=== PATIENT | female | born 1970 | race Two or more races ===

== ENCOUNTER 2022-05-31 13:04 | Emergency (ER) | payer BC, OTHER ==
[~2022-05-31] VITALS: Ht 170.2 cm; Wt 126.0 kg
[2022-05-31] MEDS ORDERED: HYDROcodone-ACET 5/325MG TAB PO ONE (15:45)
[2022-05-31 15:54] VITALS: BP 115/62
[2022-05-31 16:19] LABS: Albumin 3.8 g/dL (3.4-5.0); Calcium 8.6 mg/dL (8.5-10.1)
[2022-05-31 16:22] LABS: BUN/Creatinine Ratio 16.9; Bilirubin, Total 0.4 mg/dL (0.2-1.0); Total Protein 7.5 g/dL (6.4-8.2)
[2022-05-31 16:24] LABS: Basophils # (auto) 0 10 ^3/uL (0-0.2); Basophils % (auto) 0.7 % (0.0-2.0); Eosinophils # (auto) 0.1 10 ^3/uL (0-0.8); Eosinophils % (auto) 1.7 % (0.0-7.0); Hematocrit 39.8 % (36.0-46.0); Hemoglobin 12.9 g/dL (12.2-16.2); Lymphocytes % (auto) 28.2 % (10.0-50.0); Mean Corpuscular Hemoglobin 30.1 pg (28.0-32.0); Mean Corpuscular Hgb Conc. 32.5 g/dL (32.0-36.0); Mean Corpuscular Volume 92.7 fL (80.0-100.0); Monocytes # (auto) 0.6 10 ^3/uL (0-1.3); Monocytes % (auto) 8.4 % (0.0-12.0); Neutrophils # (auto) 4.2 10 ^3/uL (1.6-8.6); Nucleated Red Blood Cells % 0.2 %; Red Blood Cells 4.29 10^6/uL (4.0-5.20); Red Cell Distribution Width 13.5 % (11.8-14.3); White Blood Cell 6.9 10^3/uL (4.4-10.8)
[2022-05-31 17:12] LABS: Urine Bacteria MANY /hpf (None Seen); Urine Blood Negative /uL (Negative); Urine Specific Gravity 1.008 (1.001-1.035); Urine WBC 2 /hpf (0 - 5)
[2022-05-31] MEDS ORDERED: BENZ100C19 PO (17:39)
[2022-05-31] MEDS ORDERED: NITR-87 PO (17:39)
[2022-05-31] MEDS ORDERED: LORA-483 GT (17:39)
== END 2022-05-31 17:45 | disposition home or self-care (01) ==
LOC: ER 13:04
DX: J06.9 Acute upper respiratory infection, unspecified (principal); B97.89 Other viral agents as the cause of diseases classified elsewhere; N39.0 Urinary tract infection, site not specified; I10 Essential (primary) hypertension
CPT/HCPCS: 36415; 71046; 74176; 80053; 81001; 81025; 83690; 85025

== ENCOUNTER 2023-09-03 13:32 | Inpatient (IN) | payer OTHER ==
[~2023-09-03] VITALS: Ht 170.2 cm; Wt 113.8 kg
[~2023-09-03 13:32] MED LIST: BENZ100C19 PO; LORA-483 GT; NITR-87 PO
[2023-09-03 14:35] LABS: Basophils # (auto) 0 10 ^3/uL (0-0.2); Basophils % (auto) 0.6 % (0.0-2.0); Eosinophils # (auto) 0.2 10 ^3/uL (0-0.8); Eosinophils % (auto) 3.1 % (0.0-7.0); Hematocrit 38.8 % (36.0-46.0); Hemoglobin 12.2 g/dL (12.2-16.2); Lymphocytes # (auto) 2.4 10 ^3/uL (0.4-5.4); Lymphocytes % (auto) 34.3 % (10.0-50.0); Mean Corpuscular Hemoglobin 28.9 pg (28.0-32.0); Mean Corpuscular Hgb Conc. 31.5 g/dL (32.0-36.0); Mean Corpuscular Volume 91.6 fL (80.0-100.0); Monocytes # (auto) 0.6 10 ^3/uL (0-1.3); Monocytes % (auto) 8.3 % (0.0-12.0); Neutrophils # (auto) 3.7 10 ^3/uL (1.6-8.6); Neutrophils % (auto) 53.7 % (37.0-80.0); Red Blood Cells 4.24 10^6/uL (4.0-5.20)
[2023-09-03 14:54] LABS: Alanine Aminotransferase 27 U/L (7-40); Albumin 4.3 g/dL (3.2-4.8); Alkaline Phosphatase 114 U/L (46-116); Anion Gap 6 (5-15); Aspartate Aminotransferase 20 U/L (13-40); BUN/Creatinine Ratio 13.8 (10.0-20.0); Blood Urea Nitrogen 11 mg/dL (9-23); Calcium 9.6 mg/dL (8.5-10.1); Carbon Dioxide 27 mmol/L (20-30); Chloride 108 mmol/L (98-107); Glucose 92 mg/dL (74-106); Potassium 4.4 mmol/L (3.5-5.1); Sodium 141 mmol/L (136-145)
[2023-09-03 14:55] LABS: Bilirubin, Total 0.5 mg/dL (0.2-1.0); Total Protein 6.6 g/dL (5.7-8.2)
[2023-09-03 15:22] LABS: INR 0.98 (0.9-1.15); Prothrombin Time 10.4 sec (9.3-11.8)
[2023-09-03] MEDS: ASPirin 325 MG TAB PO ONE (16:21)
[2023-09-03 16:25] LABS: Magnesium 2.1 mg/dL (1.6-2.6)
[2023-09-03 16:26] LABS: Phosphorus 3.2 mg/dL (2.4-5.1)
[2023-09-03 17:41] VITALS: PULSE 67; RESP 16; O2SAT 99
[2023-09-03 18:00] VITALS: PULSE 76; RESP 12; O2SAT 98
[2023-09-03 20:00] VITALS: TEMP 98.1
[2023-09-03] MEDS: METOPROLOL TARTRATE 50 MG TAB PO SCH (22:00)
[2023-09-03] MEDS: ATORVASTATIN 20 MG TAB PO SCH (22:00)
[2023-09-04 00:51] VITALS: PULSE 79; RESP 16; O2SAT 99
[2023-09-04 07:30] VITALS: PULSE 79; RESP 16; O2SAT 99
[2023-09-04] MEDS: ASPirin 81 mg TAB PO SCH (10:22)
[2023-09-04 11:01] VITALS: BP 123/67; PULSE 85; RESP 14; O2SAT 98
== END 2023-09-04 11:15 | disposition left against medical advice (07) | DRG 69 ==
LOC: ER 13:32 → OVERFLOW 18:07
PROVIDERS: ADMIT Nurse Practitioner Family; ATTEND Nurse Practitioner Family
DX: G45.9 Transient cerebral ischemic attack, unspecified (principal); I10 Essential (primary) hypertension; J45.909 Unspecified asthma, uncomplicated; F41.0 Panic disorder [episodic paroxysmal anxiety]; Z53.29 Procedure and treatment not carried out because of patient's decision for other reasons; Z90.49 Acquired absence of other specified parts of digestive tract; Z82.49 Family history of ischemic heart disease and other diseases of the circulatory system; Z82.3 Family history of stroke
CPT/HCPCS: 36415; 70450; 70496; 80053; 80061; 83735; 84100; 84146; 84443; 84484; 85025; 85610; 86592; 93005; 99291; G0378